=== PATIENT | male | born 1980 | race Caucasian/White ===

== ENCOUNTER 2016-10-04 16:50 | Emergency (ER) | payer MEDICARE, MEDICAID ==
[2016-10-04 17:57] VITALS: BP 156/79
--- NOTE | 2016-10-04 18:32 | UC ---
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) Initially had significant forearm pain which went away 1-2 days ago right handed - History Of Current Complaint Chief Complaint: UCGeneralIllness Stated Complaint: RIGHT HAND-FINGERS TINGLING Time Seen by Provider: 10/04/16 18:09 Hx Obtained From: Patient Onset/Duration: Gradual Onset, Lasting Days Severity Initially: Moderate Severity Currently: Mild Pain Intensity: 0 Pain Scale Used: 0-10 Numeric Character Of Pain: Aching - initially had achy right forearm pain Aggravating Factor(s): Movement - resolved Alleviating: Rest Associated Signs And Symptoms: Positive: Numbness/Tingling - tips of 3/4 fingers only Related History: Dominant Hand Right - Allergies/Home Medications Allergies/Adverse Reactions: Allergies Allergy/AdvReac Type Severity Reaction Status Date / Time Cyclobenzaprine Allergy See Comment Verified 10/04/16 17:57 [From Flexeril] Amoxicillin AdvReac Intermediate Rash Verified 10/04/16 17:57 Cefaclor [From Ceclor] AdvReac Intermediate Rash Verified 10/04/16 17:57 Erythromycin [From E-Mycin] AdvReac Intermediate Rash Verified 10/04/16 17:57 Benedryl Allergy Severe Dyskinesia Uncoded 10/04/16 17:57 neurontin at high doses Allergy Rash Uncoded 10/04/16 17:57 Home Medications: Home Medications FLUoxetine CAP* [PROzac CAP*] 10 mg PO DAILY 10/04/16 [History Confirmed ] PMH/Surg Hx/FS Hx/Imm Hx Previously Healthy: Yes - Hx IVDA Endocrine History Of: Denies: Diabetes Cardiovascular History Of: Denies: Hypertension, Pacemaker/ICD Respiratory History Of: Denies: Asthma - Surgical History Surgical History: Yes Surgery Procedure, Year, and Place: Left Hip Arthoplasty (THR) 2008' [place]. Left hip replacement 2008 - Family History Known Family History: Positive: Hypertension, Other - MS/parkinsons - Social History Alcohol Use: None Alcohol Amount: h/o abuse Substance Use Type: Marijuana Substance Use Comment - Amount & Last Used: on Vivitrol injections Smoking Status (MU): Heavy Every Day Tobacco Smoker Type: Cigarettes Amount Used/How Often: 1/2 ppd Length of Time of Smoking/Using Tobacco: 19 yrs Have You Smoked in the Last Year: Yes Review of Systems Constitutional: Negative Skin: Negative Eyes: Negative ENT: Negative Respiratory: Negative Cardiovascular: Negative Gastrointestinal: Negative Genitourinary: Negative Motor: Negative Neurovascular: Decreased Sensation - right 3/4 finger tips Musculoskeletal: Negative Neurological: Negative, Paresthesia - 3/4 finger tips Psychological: Negative All Other Systems Reviewed And Are Negative: Yes Physical Exam Triage Information Reviewed: Yes Appearance: Well-Appearing, No Pain Distress, Well-Nourished Vital Signs: Initial Vital Signs Temp 99 F 10/04/16 17:51 Pulse 59 10/04/16 17:51 Resp 16 10/04/16 17:51 BP 156/79 10/04/16 17:51 Pulse Ox 98 10/04/16 17:51 Vital Signs Reviewed: Yes Eyes: Positive: Conjunctiva Clear ENT: Positive: TMs normal. Negative: Hearing grossly normal, Pharynx normal, Pharyngeal erythema, Nasal congestion, Nasal drainage, TM bulging, TM dull, TM red, Tonsillar swelling, Tonsillar exudate, Trismus, Muffled/hoarse voice Neck: Positive: Supple, Nontender Respiratory: Positive: Lungs clear, Normal breath sounds, No respiratory distress, No accessory muscle use Cardiovascular: Positive: RRR, Pulses Normal, Brisk Capillary Refill. Negative : Tachycardia, Bradycardia, Distal Pulses Weak, Distal Pulses Absent, Delayed Capillary Refill Musculoskeletal: Positive: ROM Intact, No Edema, Other: - (+) tinels sign Neurological: Positive: Alert Psychological Exam: Normal Skin Exam: Normal Hand/Wrist Course/Dx - Differential Dx/Diagnosis Provider Diagnoses: numb finger tips (right 3/4). suspect compression neuropathy Discharge - Discharge Plan Condition: Stable Disposition: HOME Prescriptions: Meloxicam [Mobic] 15 mg PO DAILY PRN #30 tab PRN Reason: Pain Patient Education Materials: Paresthesia (ED) Referrals: Ifeanyi KEYS,Andrés Christensen [Primary Care Provider] - 1 Week Additional Instructions: I think the numbness in your fingertips is due to pressure on some nerves Wear splint at bedtime recheck next week with your provider if not better
== END 2016-10-04 19:09 | disposition home or self-care (01) ==
LOC: UCCORT 16:50
DX: R20.0 Anesthesia of skin (principal); Z88.1 Allergy status to other antibiotic agents; Z88.8 Allergy status to other drugs, medicaments and biological substances; Z96.642 Presence of left artificial hip joint; F12.90 Cannabis use, unspecified, uncomplicated; F17.210 Nicotine dependence, cigarettes, uncomplicated
CPT/HCPCS: 99213; G0463

== ENCOUNTER 2017-03-30 19:00 | Emergency (ER) | payer MEDICARE, MEDICAID | END 2017-03-30 19:42 | disposition left against medical advice (07) | LOC: UCCORT 19:00 | DX: R05 Cough (principal); R09.89 Other specified symptoms and signs involving the circulatory and respiratory systems; Z53.21 Procedure and treatment not carried out due to patient leaving prior to being seen by health care provider ==

== ENCOUNTER 2017-05-17 09:10 | Emergency (ER) | payer MEDICARE, MEDICAID ==
[2017-05-17 11:07] LABS: Hematocrit 33 % (42-52); Hemoglobin 11.2 g/dl (14.0-18.0); Mean Corpuscular HGB Conc 34 g/dl (31-36); Mean Corpuscular Hemoglobin 30 pg (27-31); Mean Corpuscular Volume 87 fL (80-94); Mean Platelet Volume 7 um3 (7.4-10.4); Red Blood Count 3.78 10^6/ul (4.0-5.4); Red Cell Distribution Width 15 % (10.5-15); White Blood Count 9.1 10^3/ul (3.5-10.8)
--- NOTE | 2017-05-17 11:14 | RAD ---
Indication: Shortness of breath. 2 views of the chest including dual energy PA views demonstrate no mediastinal shift. Heart is of normal size and configuration. Lung guzman appear clear. No prior study is available for comparison IMPRESSION: No active cardiopulmonary disease is noted.
[2017-05-17 11:29] LABS: Albumin 3.8 g/dL (3.2-5.2); BUN/Creatinine Ratio 20.4 (8-20); C Reactive Protein 2.7 mg/L (< 5.00); Calcium 8.7 mg/dL (8.6-10.3); EGFR African American 118.2 (>60); EGFR Non-African American 91.9 (>60); Globulin 2.5 g/dL (2-4); Potassium 4.3 mmol/L (3.5-5.0); Total Bilirubin 0.4 mg/dL (0.2-1.0); Total Protein 6.3 g/dL (6.4-8.9)
[2017-05-17 11:30] LABS: Troponin I 0.03 ng/mL (<0.04)
[2017-05-17 11:37] LABS: Urine Bacteria Absent (Absent); Urine Bilirubin Negative (Negative); Urine Glucose Negative (Negative); Urine Nitrite Negative (Negative)
[2017-05-17 13:44] VITALS: BP 114/60
--- NOTE | 2017-05-17 18:42 | ED ---
Maninder Moyer SooYoung, scribed for Isak Swartz MD on 05/17/17 at 1022 . Shortness of Breath - HPI Summary HPI Summary: A 36 y/o M presents to ED with c/o SOB onset two days ago. Associated sx: decreased appetite, pedal edema, bilat UE numbness. Denies nasal congestion, sore throat. He states he has chronic rhinorrhea ongoing for years. Denies PMHx of COPD, CHF, asthma. Former smoker, stopped last week. - History of Current Complaint Chief Complaint: EDShortnessOfBreath Time Seen by Provider: 05/17/17 10:03 Hx Obtained From: Patient Onset/Duration: Gradual Onset, Lasting Days - two days, Still Present Timing: Constant Current Severity: Moderate Associated Signs & Symptoms: Edema - bilat feet - Allergy/Home Medications Allergies/Adverse Reactions: Allergies Allergy/AdvReac Type Severity Reaction Status Date / Time Cyclobenzaprine Allergy See Comment Verified 10/04/16 17:57 [From Flexeril] Amoxicillin AdvReac Intermediate Rash Verified 10/04/16 17:57 Cefaclor [From Ceclor] AdvReac Intermediate Rash Verified 10/04/16 17:57 Erythromycin [From E-Mycin] AdvReac Intermediate Rash Verified 10/04/16 17:57 Benedryl Allergy Severe Dyskinesia Uncoded 10/04/16 17:57 neurontin at high doses Allergy Rash Uncoded 10/04/16 17:57 PMH/Surg Hx/FS Hx/Imm Hx Previously Healthy: No Endocrine/Hematology History: Denies: Hx Diabetes Cardiovascular History: Denies: Hx Hypertension, Hx Pacemaker/ICD Respiratory History: Denies: Hx Asthma Musculoskeletal History: Reports: Hx Back Problems, 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 Left hip replacement 2008 Infectious Disease History: Yes Infectious Disease History: Reports: Hx Hepatitis - Hep. C Denies: History Other Infectious Disease, Traveled Outside the [place] in Last 30 Days - Family History Known Family History: Positive: Hypertension, Other - MS/parkinsons - Social History Occupation: Disabled Lives: Alone Alcohol Amount: h/o abuse Hx Substance Use: Yes Substance Use Type: Reports: Marijuana Substance Use Comment - Amount & Last Used: on Vivitrol injections Hx Tobacco Use: Yes Smoking Status (MU): Former Smoker Type: Cigarettes Amount Used/How Often: 1/2 ppd Length of Time of Smoking/Using Tobacco: 19 yrs Have You Smoked in the Last Year: Yes Review of Systems Positive: Other - pos: decreased oral intake Negative: Sore Throat, Other - nasal congestion Positive: Shortness Of Breath Positive: Edema - bilat pedal Positive: Numbness - bilat All Other Systems Reviewed And Are Negative: Yes Physical Exam - Summary Physical Exam Summary: VITAL SIGNS: Reviewed. GENERAL: Patient is a well-developed and nourished MALE who is lying comfortable in the stretcher. Patient is not in any acute respiratory distress. HEAD AND FACE: No signs of trauma. No ecchymosis, hematomas or skull depressions. No sinus tenderness. EYES: PERRLA, EOMI x 2, No injected conjunctiva, no nystagmus. EARS: Hearing grossly intact. Ear canals and tympanic membranes are within normal limits. MOUTH: Oropharynx within normal limits. NECK: Supple, trachea is midline, no adenopathy, no JVD, no carotid bruit, no c- spine tenderness, neck with full ROM. CHEST: Symmetric, no tenderness at palpation LUNGS: Clear to auscultation bilaterally. No wheezing or crackles. CVS: Regular rate and rhythm, S1 and S2 present, no murmurs or gallops appreciated. ABDOMEN: Soft, non-tender. No signs of distention. No rebound, no guarding, and no masses palpated. Bowel sounds are normal. EXTREMITIES: FROM in all major joints, no edema, no cyanosis or clubbing. NEURO: Alert and oriented x 3. No acute neurological deficits. Speech is normal and follows commands. SKIN: Dry and warm Triage Information Reviewed: Yes Vital Signs On Initial Exam: Initial Vitals Temp Pulse Resp BP Pulse Ox 99.3 F 68 22 104/62 99 05/17/17 09:35 05/17/17 09:35 05/17/17 09:35 05/17/17 09:35 05/17/17 09:35 Vital Signs Reviewed: Yes - Abel Coma Scale Coma Scale Total: 15 Diagnostics - Vital Signs Vital Signs Temp Pulse Resp BP Pulse Ox 05/17/17 10:18 20 05/17/17 10:00 66 97 05/17/17 09:39 65 10 107/60 99 05/17/17 09:35 99.3 F 68 22 104/62 99 - Laboratory Lab Results: Lab Results 05/17/17 05/17/17 05/17/17 Range/Units 09:52 10:50 10:50 WBC (3.5-10.8) 10^3/ul RBC (4.0-5.4) 10^6/ul Hgb (14.0-18.0) g/dl Hct (42-52) % MCV (80-94) fL MCH (27-31) pg MCHC (31-36) g/dl RDW (10.5-15) % Plt Count (150-450) 10^3/ul MPV (7.4-10.4) um3 Neut % (Auto) (38-83) % Lymph % (Auto) (25-47) % [place] % (Auto) (1-9) % Eos % (Auto) (0-6) % Baso % (Auto) (0-2) % Absolute Neuts (auto) (1.5-7.7) 10^3/ul Absolute Lymphs (auto) (1.0-4.8) 10^3/ul Absolute Monos (auto) (0-0.8) 10^3/ul Absolute Eos (auto) (0-0.6) 10^3/ul Absolute Basos (auto) (0-0.2) 10^3/ul Absolute Nucleated RBC 10^3/ul Nucleated RBC % Sodium 137 (133-145) mmol/L Potassium 4.3 (3.5-5.0) mmol/L Chloride 107 (101-111) mmol/L Carbon Dioxide 26 (22-32) mmol/L Anion Gap 4 (2-11) mmol/L BUN 19 (6-24) mg/dL Creatinine 0.93 (0.67-1.17) mg/dL Est GFR ( Amer) 118.2 (>60) Est GFR (Non-Af Amer) 91.9 (>60) BUN/Creatinine Ratio 20.4 H (8-20) Glucose 102 H (70-100) mg/dL Calcium 8.7 (8.6-10.3) mg/dL Total Bilirubin 0.40 (0.2-1.0) mg/dL AST 20 (13-39) U/L ALT 20 (7-52) U/L Alkaline Phosphatase 53 (34-104) U/L CK-MB (CK-2) 1.7 (0.6-6.3) ng/mL Troponin I 0.03 (<0.04) ng/mL C-Reactive Protein 2.70 (< 5.00) mg/L B-Natriuretic Peptide 167 H ( - 100) pg/mL Total Protein 6.3 L (6.4-8.9) g/dL Albumin 3.8 (3.2-5.2) g/dL Globulin 2.5 (2-4) g/dL Albumin/Globulin Ratio 1.5 (1-3) Urine Color Yellow Urine Appearance Clear Urine pH 6.0 (5-9) Ur Specific [place] 1.014 (1.010-1.030) Urine Protein Negative (Negative) Urine Ketones Negative (Negative) Urine Blood Negative (Negative) Urine Nitrate Negative (Negative) Urine Bilirubin Negative (Negative) Urine Urobilinogen Negative (Negative) Ur Leukocyte Esterase Trace H (Negative) Urine WBC (Auto) Trace(0-5/hpf) (Absent) Urine RBC (Auto) Trace(0-2/hpf) (Absent) Ur Squamous Epith Cells Present H (Absent) Urine Bacteria Absent (Absent) Hyaline Casts Present H (Absent) Urine Glucose Negative (Negative) 05/17/17 Range/Units 10:50 WBC 9.1 (3.5-10.8) 10^3/ul RBC 3.78 L (4.0-5.4) 10^6/ul Hgb 11.2 L (14.0-18.0) g/dl Hct 33 L (42-52) % MCV 87 (80-94) fL MCH 30 (27-31) pg MCHC 34 (31-36) g/dl RDW 15 (10.5-15) % Plt Count 201 (150-450) 10^3/ul MPV 7 L (7.4-10.4) um3 Neut % (Auto) 63.3 (38-83) % Lymph % (Auto) 26.0 (25-47) % [place] % (Auto) 8.5 (1-9) % Eos % (Auto) 1.6 (0-6) % Baso % (Auto) 0.6 (0-2) % Absolute Neuts (auto) 5.7 (1.5-7.7) 10^3/ul Absolute Lymphs (auto) 2.4 (1.0-4.8) 10^3/ul Absolute Monos (auto) 0.8 (0-0.8) 10^3/ul Absolute Eos (auto) 0.1 (0-0.6) 10^3/ul Absolute Basos (auto) 0.1 (0-0.2) 10^3/ul Absolute Nucleated RBC 0 10^3/ul Nucleated RBC % 0 Sodium (133-145) mmol/L Potassium (3.5-5.0) mmol/L Chloride (101-111) mmol/L Carbon Dioxide (22-32) mmol/L Anion Gap (2-11) mmol/L BUN (6-24) mg/dL Creatinine (0.67-1.17) mg/dL Est GFR ( Amer) (>60) Est GFR (Non-Af Amer) (>60) BUN/Creatinine Ratio (8-20) Glucose (70-100) mg/dL Calcium (8.6-10.3) mg/dL Total Bilirubin (0.2-1.0) mg/dL AST (13-39) U/L ALT (7-52) U/L Alkaline Phosphatase (34-104) U/L CK-MB (CK-2) (0.6-6.3) ng/mL Troponin I (<0.04) ng/mL C-Reactive Protein (< 5.00) mg/L B-Natriuretic Peptide ( - 100) pg/mL Total Protein (6.4-8.9) g/dL Albumin (3.2-5.2) g/dL Globulin (2-4) g/dL Albumin/Globulin Ratio (1-3) Urine Color Urine Appearance Urine pH (5-9) Ur Specific [place] (1.010-1.030) Urine Protein (Negative) Urine Ketones (Negative) Urine Blood (Negative) Urine Nitrate (Negative) Urine Bilirubin (Negative) Urine Urobilinogen (Negative) Ur Leukocyte Esterase (Negative) Urine WBC (Auto) (Absent) Urine RBC (Auto) (Absent) Ur Squamous Epith Cells (Absent) Urine Bacteria (Absent) Hyaline Casts (Absent) Urine Glucose (Negative) Result Diagrams: 05/17/17 10:50 05/17/17 10:50 Lab Statement: Any lab studies that have been ordered have been reviewed, and results considered in the medical decision making process. - Radiology CXR Xray Interpretation: No Acute Changes - IMPRESSION: No active cardiopulmonary dz. ED physician has reviewed this radiology report and agrees Radiology Interpretation Completed By: Radiologist - EKG 1037 Cardiac Rate: NL - 72bpm EKG Rhythm: Sinus Rhythm ST Segment: Normal Ectopy: None Re-Evaluation - Re-Evaluation 1 Re-Evaluation Time: 12:54 Change: Unchanged Comment: Discussing results with pt and plan to dispo. Pt voiced understanding. Course/Dx - Course Course Of Treatment: A 36 y/o M presents to ED with c/o SOB onset two days ago. Associated sx: decreased appetite, pedal edema, bilat UE numbness. Denies nasal congestion, sore throat. He states he has chronic rhinorrhea ongoing for years. Denies PMHx of COPD, CHF, asthma. Former smoker, stopped last week. Bloodwork and labs are without significant abnormality. CXR is neg for PNA. It seems that pt has an URI with viral etiology. Therefore, will D/C home to f/u PCP, no need for ABX at this time. Recommended to return to ED if he develops fever, n/v, and productive cough. Pt voiced understanding. - Diagnoses Differential Diagnosis/HQI/PQRI: Positive: Asthma, Bronchitis, Chest Wall Pain, COPD Exacerbation Provider Diagnoses: URI (upper respiratory infection) Discharge - Discharge Plan Condition: Stable Disposition: HOME Patient Education Materials: Upper Respiratory Infection (ED) Referrals: Ifeanyi KEYS,Andrés Christensen [Primary Care Provider] - Additional Instructions: Follow up with your primary care provider in 3 days. Please return to the ED if you experience new or worsening symptoms. The documentation as recorded by the Maninder cao SooYoung accurately reflects the service I personally performed and the decisions made by me, Isak Swartz MD.
== END 2017-05-17 13:43 | disposition home or self-care (01) ==
LOC: ED 09:10
DX: J06.9 Acute upper respiratory infection, unspecified (principal); R06.02 Shortness of breath; Z87.891 Personal history of nicotine dependence
CPT/HCPCS: 36415; 71020; 80053; 81003; 81015; 82553; 83880; 84484; 85025; 86140; 87086; 93005; 99283

== ENCOUNTER 2017-07-24 14:35 | Emergency (ER) | payer MEDICARE, MEDICAID ==
[2017-07-24 15:06] VITALS: BP 143/80
--- NOTE | 2017-07-24 15:46 | UC ---
General HPI - HPI Summary HPI Summary: [facility] last week,,did not get his welbutrin did get all other meds---called pharmacy and confirmed dose - History of Current Complaint Chief Complaint: UCMedRefill Stated Complaint: MEDICATION REFILL Time Seen by Provider: 07/24/17 15:20 Hx Obtained From: Patient Timing: Constant Onset Severity: Mild Current Severity: Mild - Allergy/Home Medications Allergies/Adverse Reactions: Allergies Allergy/AdvReac Type Severity Reaction Status Date / Time Cyclobenzaprine Allergy See Comment Verified 07/24/17 14:58 [From Flexeril] Amoxicillin AdvReac Intermediate Rash Verified 07/24/17 14:58 Cefaclor [From Ceclor] AdvReac Intermediate Rash Verified 07/24/17 14:58 Erythromycin [From E-Mycin] AdvReac Intermediate Rash Verified 07/24/17 14:58 Benedryl Allergy Severe Dyskinesia Uncoded 07/24/17 14:58 neurontin at high doses Allergy Rash Uncoded 07/24/17 14:58 Home Medications: Home Medications Bupropion XL* [Wellbutrin XL *] 300 mg DAILY 07/24/17 [History Confirmed ] PMH/Surg Hx/FS Hx/Imm Hx Previously Healthy: No Psychological History: Anxiety, Depression, Other 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 Left hip replacement 2008 - Family History Known Family History: Positive: Hypertension, Other - MS/parkinsons - Social History Occupation: Unemployed Lives: With Family Alcohol Use: None Alcohol Amount: h/o abuse Substance Use Type: None Substance Use Comment - Amount & Last Used: 07/24/17- clean since 06/11/17 Smoking Status (MU): Light Every Day Tobacco Smoker Type: Cigarettes Amount Used/How Often: <1/2 ppd Length of Time of Smoking/Using Tobacco: 19 yrs Have You Smoked in the Last Year: Yes - Immunization History Most Recent Influenza Vaccination: no Review of Systems Constitutional: Negative Skin: Negative Eyes: Negative ENT: Negative Respiratory: Negative Cardiovascular: Negative Gastrointestinal: Negative Genitourinary: Negative Motor: Negative Neurovascular: Negative Musculoskeletal: Negative Neurological: Negative Psychological: Negative Is Patient Immunocompromised?: No All Other Systems Reviewed And Are Negative: Yes Physical Exam Triage Information Reviewed: Yes Appearance: Well-Appearing, No Pain Distress, Well-Nourished Vital Signs: Initial Vital Signs Temp 99.1 F 07/24/17 15:00 Pulse 90 07/24/17 15:00 Resp 18 07/24/17 15:00 BP 143/80 07/24/17 15:00 Pulse Ox 98 07/24/17 15:00 Vital Signs Reviewed: Yes Eye Exam: Normal Eyes: Positive: Conjunctiva Clear ENT Exam: Normal ENT: Positive: Normal ENT inspection, Hearing grossly normal. Negative: Nasal congestion, Trismus, Muffled voice, Hoarse voice, Sinus tenderness Dental Exam: Normal Neck exam: Normal Neck: Positive: Supple, Nontender Respiratory Exam: Normal Respiratory: Positive: Chest non-tender, No respiratory distress, No accessory muscle use Cardiovascular Exam: Normal Cardiovascular: Positive: Pulses Normal, Brisk Capillary Refill Musculoskeletal Exam: Normal Musculoskeletal: Positive: Strength Intact, ROM Intact, No Edema Neurological Exam: Normal Neurological: Positive: Alert, Muscle Tone Normal Psychological Exam: Normal Skin Exam: Normal Course/Dx - Course Course Of Treatment: refill wellbutrin has follow up with [facility] - Differential Dx - Multi-Symptom Provider Diagnoses: polysubstance abuse in early recovery Discharge - Discharge Plan Condition: Stable Disposition: HOME Prescriptions: Bupropion XL* [Wellbutrin XL *] 300 mg PO DAILY #30 tab Patient Education Materials: Polysubstance Abuse (ED) Referrals: [facility] [place] [facility]FERR[facility] [Outside] - 1 Week Additional Instructions: Best of wellness in your continuing sobriety----
== END 2017-07-24 15:54 | disposition home or self-care (01) ==
LOC: UCCORT 14:35
DX: F19.11 Other psychoactive substance abuse, in remission (principal); Z76.0 Encounter for issue of repeat prescription; F41.9 Anxiety disorder, unspecified; F32.9 Major depressive disorder, single episode, unspecified; Z88.1 Allergy status to other antibiotic agents; Z88.8 Allergy status to other drugs, medicaments and biological substances; F17.210 Nicotine dependence, cigarettes, uncomplicated
CPT/HCPCS: 99212; G0463

== ENCOUNTER 2018-10-13 12:46 | Emergency (ER) | payer MEDICARE, MEDICAID ==
--- NOTE | 2018-10-13 13:18 | ED ---
Psychiatric Complaint - HPI Summary HPI Summary: Pt is a 38 y/o male brought in by police on a 945 who presents to the ED c/o anger. He recently found out his mother has brain CA and is living in a home with smoke exposure. Pt is very upset about this news and feels angry. He denies any SI or HI. He has a hx of opioid and amphetamine abuse, and somebody called the police because they are concerned he may relapse due to this recent stress. However, pt states that he does not want to use drugs. PMHx bipolar disorder and is on Prozac, Depakote, and Naltrexone. Pt states he thinks his medications are no longer working. He is a former smoker. - History Of Current Complaint Chief Complaint: EDMentalHealth Time Seen by Provider: 10/13/18 13:14 Hx Obtained From: Patient Onset/Duration: Gradual Onset, Lasting Weeks - 2, Still Present Timing: Constant Character: Angry Aggravating Factor(s): Recent Stress Alleviating Factor(s): Nothing Related History: Positive For: Prior Psychiatric Issues Has Suicidal: Denies: Thoughts Has Homicidal: Denies: Thoughts - Allergies/Home Medications Allergies/Adverse Reactions: Allergies Allergy/AdvReac Type Severity Reaction Status Date / Time amoxicillin Allergy Rash Verified 10/13/18 13:25 cefaclor Allergy Rash Verified 10/13/18 13:25 cyclobenzaprine Allergy See Comment Verified 10/13/18 13:26 [From Flexeril] erythromycin base Allergy Rash Verified 10/13/18 13:25 Benedryl Allergy Severe Dyskinesia Uncoded 07/24/17 14:58 neurontin at high doses Allergy Rash Uncoded 07/24/17 14:58 Home Medications: Home Medications Divalproex DR TAB(*) [Depakote DR(*)] 500 mg PO BID 10/13/18 [History Confirmed 10/13/18] FLUoxetine CAP* [PROzac CAP*] 20 mg PO DAILY 10/13/18 [History Confirmed ] Naltrexone TAB* 50 mg PO BID 10/13/18 [History Confirmed 10/13/18] PMH/Surg Hx/FS Hx/Imm Hx Endocrine/Hematology History: Denies: Hx Diabetes Cardiovascular History: Denies: Hx Hypertension, Hx Pacemaker/ICD Respiratory History: Denies: Hx Asthma Musculoskeletal History: Reports: Hx Back Problems, 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 Left hip replacement 2008 Infectious Disease History: No Infectious Disease History: Reports: Hx Hepatitis - Hep. C Denies: History Other Infectious Disease, Traveled Outside the [place] in Last 30 Days - Family History Known Family History: Positive: Hypertension, Other - MS/parkinsons - Social History Alcohol Use: None Alcohol Amount: h/o abuse Hx Substance Use: Yes Substance Use Type: Reports: None Substance Use Comment - Amount & Last Used: amphetamines, opiods 07/24/17- clean since 06/11/17 Hx Tobacco Use: Yes Smoking Status (MU): Former Smoker Type: Cigarettes Amount Used/How Often: <1/2 ppd Length of Time of Smoking/Using Tobacco: 19 yrs Have You Smoked in the Last Year: Yes Review of Systems Negative: Fever Positive: Other - Angry, NEGATIVE: SI, HI All Other Systems Reviewed And Are Negative: Yes Physical Exam - Summary Physical Exam Summary: Appearance: The patient is well-nourished in no acute distress and in no acute pain. Skin: The skin is warm and dry and skin color reflects adequate perfusion. HEENT: The head is normocephalic and atraumatic. The pupils are equal and reactive. The conjunctivae are clear and without drainage. Nares are patent and without drainage. Mouth reveals moist mucous membranes and the throat is without erythema and exudate. The external ears are intact. The ear canals are patent and without drainage. The tympanic membranes are intact. Neck: The neck is supple with full range of motion and non-tender. There are no carotid bruits. There is no neck vein distension. Respiratory: Chest is non-tender. Lungs are clear to auscultation and breath sounds are symmetrical and equal. Cardiovascular: Heart is regular rate and rhythm. There is no murmur or rub auscultated. There is no peripheral edema and pulses are symmetrical and equal. Abdomen: The abdomen is soft and non-tender. There are normal bowel sounds heard in all four quadrants and there is no organomegaly palpated. Musculoskeletal: There is no back tenderness noted. Extremities are non-tender with full range of motion. There is good capillary refill. There is no peripheral edema or calf tenderness elicited. Neurological: Patient is alert and oriented to person, place and time. The patient has symmetrical motor strength in all four extremities. Cranial nerves are grossly intact. Deep tendon reflexes are symmetrical and equal in all four extremities. Psychiatric: The patient has an appropriate affect and does not exhibit any anxiety or depression. Triage Information Reviewed: Yes Vital Signs On Initial Exam: Initial Vitals Temp Pulse Resp BP Pulse Ox 99.1 F 91 16 153/100 97 10/13/18 12:54 10/13/18 12:54 10/13/18 12:54 10/13/18 12:54 10/13/18 12:54 Vital Signs Reviewed: Yes Diagnostics - Vital Signs Vital Signs Temp Pulse Resp BP Pulse Ox 10/13/18 12:54 99.1 F 91 16 153/100 97 - Laboratory Result Diagrams: 10/13/18 13:39 10/13/18 13:39 Lab Statement: Any lab studies that have been ordered have been reviewed, and results considered in the medical decision making process. Re-Evaluation - Re-Evaluation First Eval Re-Evaluation Time: 14:45 Change: Unchanged Comment: Pt is medically cleared for a MHE. Second Eval Re-Evaluation Time: 15:28 Change: Worse Comment: Pt now has a ULRICH and is requesting Tylenol. Course/Dx - Course Course Of Treatment: Mr. Bustillo was apparently sent into the emergency department in voluntarily with a concern for his safety. He has had recent stressors of his mother's diagnosis of lung cancer with brain metastases and the fact that she is still living and environment follow-up secondhand smoke. He has a history of IV drug use and there is a concern that he will revert or that he will hurt himself another way. He has been medically cleared at this point and is awaiting mental health eval. - Differential Dx/Clinical Impression Provider Diagnosis: Situational depression Discharge - Sign-Out/Discharge Documenting (check all that apply): Sign-Out Patient Signing out patient TO: Maddie Gupta Patient Received Moderate/Deep Sedation with Procedure: No - Discharge Plan Referrals: No Primary Care Phys,NOPCP [Primary Care Provider] - - Attestation Statements Document Initiated by Scribe: Yes Documenting Scribe: Prema Ayala Provider For Whom Scribe is Documenting (Include Credential): Pool Swain MD Scribe Attestation: I, Prema Ayala, scribed for Pool Swain MD on 10/13/18 at 1749. Scribe Documentation Reviewed: Yes Provider Attestation: The documentation as recorded by the kimmyibePrema accurately reflects the service I personally performed and the decisions made by me, Pool Swain MD Status of Scribe Document: Viewed
[2018-10-13] MEDS ORDERED: Nicotine Inhaler* 10 MG AMP INH PRN (13:24)
--- OUTSIDE RECORDS SUMMARY | 2018-10-13 13:43 | XMS REPORT | Continuity of Care Document ---
:1980 External Reference #:[id number] Demographics Address [address] [place] [address] Home Phone [phone] Mobile Phone [phone] Preferred Language en Marital Status Not or Scientologist Affiliation Unknown Race White Ethnic Group Not or Author Name Monty Erazo N.P. Address [address] [facility] [address] [place] [address] Care Team Providers Name Role Phone Scott Miner M.D. Care Team Information Computer Applications Developer Unavailable Payers Date Identification Numbers Payment Provider Subscriber Policy Number: [id number] Medicare Fly Bustillo PayID: [id number] [address] [place] [address] Policy Number: [id number] [facility] Fly Bustillo PayID: [id number] [address] [place] [address] Effective: 2009 Policy Number: [id number] [facility] Fly Bustillo Expires: 2011 PayID: [id number] [address] [place] [address] Advance Directives Description No Information Available Problems Description No Information Family History Date Family Member(s) Observation Comments General Depression General Hypertension General Heart Disease Father due to Pulmonary Embolus () Mother 67 Mother Lung Cancer Mother Brain cancer Children 4 Siblings 6 Social History Type Date Description Comments Sex Unknown Work Status Disabled ETOH Use Denies alcohol use Tobacco Use Start: Unknown End: Unknown Patient is a former smoker Recreational Drug Use Former Drug User Smoking Status Reviewed: 05/08/18 Patient is a former smoker Allergies, Adverse Reactions, Alerts Date Description Reaction Status Severity Comments 10/05/2018 Wellbutrin Active 10/05/2018 Gabapentin Active 10/05/2018 Cefaclor Active 10/05/2018 Benadryl Active 10/05/2018 Azithromycin Active Medications Medication Date Status Form Strength Qnty SIG Indications Ordering Provider Naltrexone Active Tablets 50mg 60tabs tab by F11.21 Kristofer, HCL 019 mouth Ahmad MStew, twice a M.D. day as needed Divalproex /[address] 500mg 1 by F31.81 Unknown Sodium 000 mouth twice a day F14.21 F11.21 Fluoxetine HCL Active Capsules 20mg 30caps 1 by mouth every F31.81 Unknown day F11.21 F14.21 Immunizations Description No Information Available Vital Signs Date Vital Result Comment 10/09/2018 10:27am BP Systolic 110 mmHg BP Diastolic 68 mmHg Height 64 inches 5'4" Weight 160.00 lb BMI (Body Mass Index) 27.5 kg/m2 Heart Rate 89 /min Respiratory Rate 16 /min 10/05/2018 1:30pm BP Systolic 122 mmHg BP Diastolic 64 mmHg Height 64 inches 5'4" Weight 160.00 lb BMI (Body Mass Index) 27.5 kg/m2 Heart Rate 79 /min Respiratory Rate 18 /min Results Test Date Facility Test Result H/L Range Note Laboratory test 10/09/2018 [facility] Valproic Acid <pending> finding [address] [facility] (607)- - TSH, Ultrasenstive <pending> Procedures Date Code Description Status 10/05/2018 24750 Visual Screening Test Completed 10/05/2018 36051 Audiometry, Bekesy, Screening Completed Encounters Type Date Location Provider Dx Diagnosis Office Visit 10/09/2018 [facility] Monty Erazo, I10 Essential ( primary) 10:15a N.P. hypertension E78.2 Mixed hyperlipidemia L20.9 Atopic dermatitis, unspecified J30.9 Allergic rhinitis, unspecified F14.21 Cocaine dependence, in remission F11.21 Opioid dependence, in remission F31.81 Bipolar II disorder M25.552 Pain in left hip M25.521 Pain in right elbow M54.5 Low back pain H52.13 Myopia, bilateral K21.9 Gastro-esophageal reflux disease without esophagitis J44.9 Chronic obstructive pulmonary disease, unspecified F17.211 Nicotine dependence, cigarettes, in remission Office Visit 10/05/2018 1:45p [facility] Scott Miner Z00.01 Encounter for Eric Arthur general adult medical exam w abnormal findings I10 Essential (primary) hypertension E78.2 Mixed hyperlipidemia L20.9 Atopic dermatitis, unspecified J30.9 Allergic rhinitis, unspecified F14.21 Cocaine dependence, in remission F11.21 Opioid dependence, in remission F31.81 Bipolar II disorder M25.552 Pain in left hip M25.521 Pain in right elbow M54.5 Low back pain H52.13 Myopia, bilateral K21.9 Gastro-esophageal reflux disease without esophagitis J44.9 Chronic obstructive pulmonary disease, unspecified F17.211 Nicotine dependence, cigarettes, in remission Office Visit 04/21/2010 2:30p [facility] Scott Miner, 719.45 Pain Joint MHolger Pelvic Region & Thigh 724.2 Lumbago 300.00 Anxiety State Unspec V70.0 Examination General Medical Routine AT Health Care Facility Plan of Treatment Future Appointment(s):11/02/2018 3:00 pm - Scott Miner M.D. at [facility]
--- OUTSIDE RECORDS SUMMARY | 2018-10-13 13:43 | XMS REPORT | Continuity of Care Document ---
:1980 External Reference #:[id number] Demographics Address [address] [place] [address] Home Phone [phone] Mobile Phone [phone] Preferred Language en Marital Status Not or Episcopal Affiliation Unknown Race White Ethnic Group Not or Author Name Scott Miner M.D. Address [address] [facility] [address] [place] [address] Care Team Providers Name Role Phone Scott Miner M.D. Care Team Information Sleep Manager Unavailable Payers Date Identification Numbers Payment Provider Subscriber Policy Number: [id number] Medicare Fly Bustillo PayID: [id number] [address] [place] [address] Policy Number: [id number] Medicaid/[facility] Fly Bustillo PayID: [id number] [address] [place] [address] Effective: 2009 Policy Number: [id number] [facility] Fly Bustillo Expires: 2011 PayID: [id number] [address] [place] [address] Advance Directives Description No Information Available Problems [...] Strength Qnty SIG Indications Ordering Provider Naltrexone 02/28/2 Active Tablets 50mg 60tabs tab by F11.21 Kristofer, HCL 019 mouth Scott Arthur, twice a M.D. day as needed Divalproex 00/[address] 500mg 1 by F31.81 Unknown Sodium 000 mouth twice a day F14.21 F11.21 Fluoxetine HCL Active Capsules 20mg 30caps 1 by mouth every F31.81 Unknown day F11.21 F14.21 Immunizations Description No Information Available Vital Signs Date Vital Result Comment 10/05/2018 1:30pm BP Systolic 122 mmHg BP Diastolic 64 mmHg Height 64 inches 5'4" Weight 160.00 lb BMI (Body Mass Index) 27.5 kg/m2 Heart Rate 79 /min Respiratory Rate 18 /min Results Description No Information Available Procedures Date Code Description Status 10/05/2018 67927 Visual Screening Test Completed 10/05/2018 37740 Audiometry, Bekesy, Screening Completed Encounters Type Date Location Provider Dx Diagnosis Office Visit 10/05/2018 [facility] Scott Miner, Z00.01 Encounter for 1:45p M.DStew general adult medical exam w abnormal findings [...] cigarettes, in remission Office Visit 04/21/2010 2:30p [facility] Scott Miner, 719.45 Pain Joint M.D. Pelvic Region & Thigh 724.2 Lumbago 300.00 Anxiety State Unspec V70.0 Examination General Medical Routine AT Health Care Facility Plan of Treatment Future Appointment(s):11/02/2018 3:00 pm - Scott Miner [facility]D. at [facility]10/05/2018 - Scott Miner M.D.Z00.01 Encounter for general adult medical examination with abnormal findingsComments:GOOD NUTRITION / EXERCISEDENTAL/ FLOSSING/ SELF CAREDROWNING/ SUN SAFETYSEAT BELT/ DRIVING SAFETYSPORT BIKE/ HELMET USESPORTS/ INJURY PREVENTIONVIOLENCE PREVENTION/ GUN SAFETYPARENTING ADVICE"SAFE AT HOME"SEX EDUCATION/ COUNSELINGBREAST/ TESTICULAR SELF EXAMEDUCATION GOALS/ ACTIVITIESLIMIT TV/ INTERNETUSETOBACCO/ ALCOHOL/ DRUGS / INHALANTSPEER REFUSAL SKILLSSOCIAL INTERACTIONFAMILY FUNCTIONINGSELF CONTROLDEPRESSION/ ANXIETYNEXT APPOINTMENTYEARLY PHYSICAL WELLNESS [id number] Essential (primary) hypertensionComments:CHECK BP TIW ( PRN)DIET AND FLUID COUNSELING LOW SODIUM DIETWT LOSSF/U LAB SMOKING RDBXLSLBAM70.2 Mixed hyperlipidemiaComments:DIET REVIEWED CONTINUE DIETWT LOSSF/U LAB FBWL20.9 Atopic dermatitis, unspecifiedComments:SKIN CARE INSTRUCTIONS EUCERIN CREAM OR BABY OIL 2-3 APPLICATION PER DAYUSE MOISTURIZING SOAPAVOID PROLONGED WATER EXPOSUREAVOID USING HOT WATER IN GEVDWMX09.9 Allergic rhinitis, unspecifiedComments:INCREASE PO FLUID USE ANTIHISTAMINE PRN SECOND HAND SMOKING AVOIDANCE SMOKING BILARDKAHM31.21 Cocaine dependence, in remissionComments: OBSERVE COUNCELLING AND REASSURANCEF/U WITH [facility] PRNF11.21 Opioid dependence, in remissionNew Medication:Naltrexone HCL 50 mg - tab by mouth twice a day as neededComments:F/U WITH REHAB NIFNBLNL50.81 Bipolar II disorderComments: COUNCELLING AND REASSURANCE RELAXATION TECHNIQUES DISCUSSED COUNSELED RE: STRESSORS IN LIFEFollow up:1 csfeeN47.552 Pain in left hipComments:EXERCISE/HEAT /MESSAGETYLENOL OR MOTRIN PRNAVOID HEAVY LIFTINGWT LOSSM25.521 Pain in right elbowComments:EXERCISE/HEAT/MESSAGE TYLENOL OR MOTRIN PRNAVOID HEAVY LIFTING ROSALIA WRAP PRNELEVATE PRNM54.5 Low back painComments:EXERCISE/HEAT /MESSAGEAVOID HEAVY LIFTING WT LOSSTYLENOL OR MOTRIN PRNH52.13 Myopia, bilateralComments:USE GLASSES/ CONTACTSF/U WITH DJHDCISCQDOAJX77.9 Gastro-esophageal reflux disease without esophagitisComments:AVOID CAFFEINE, ETOH AND SPICY FOODSTUMS OR MYLANTA PRN CALL WITH PROBLEMS OR CONCERNSSMOKING NAAFGPONYU78.9 Chronic obstructive pulmonary disease, unspecifiedComments:INCREASE PO FLUIDRESTSMOKING GPOWBVVRCF22.211 Nicotine dependence, cigarettes, in remissionComments:SMOKING CESSATION COUNCELLING DISCUSSION RE: CESSATION OPTIONSPT INFORMED RE: NICOTINE PATCHES, CHANTIX, AND JUDI
[2018-10-13 13:46] LABS: ABS Basophils 0.1 10^3/ul (0-0.2); ABS Eosinophils 0.1 10^3/ul (0-0.6); ABS Lymphocytes 1.6 10^3/ul (1.0-4.8); ABS Monocytes 0.6 10^3/ul (0-0.8); ABS Neutrophils 4.7 10^3/ul (1.5-7.7); ABS Nucleated RBC 0 10^3/ul; Eosinophil % 0.9 %; Hematocrit 41 % (42-52); Hemoglobin 13.8 g/dl (14.0-18.0); Lymphocyte % 22.6 %; Mean Corpuscular HGB Conc 34 g/dl (31-36); Mean Corpuscular Hemoglobin 30 pg (27-31); Mean Corpuscular Volume 89 fL (80-94); Mean Platelet Volume 7.3 fL (7.4-10.4); Nucleated Red Blood Cells % 0; Platelet Count 241 10^3/ul (150-450); Red Blood Count 4.58 10^6/ul (4.00-5.40); Red Cell Distribution Width 13 % (10.5-15); White Blood Count 6.9 10^3/ul (3.5-10.8)
[2018-10-13 13:58] LABS: Urine Appearance Cloudy; Urine Bacteria Absent (Absent); Urine Bilirubin Negative (Negative); Urine Blood 1+ (Negative); Urine Color Yellow; Urine Glucose Negative (Negative); Urine Ketones Trace (Negative); Urine Nitrite Negative (Negative); Urine Protein Negative (Negative); Urine Red Blood Cell 3+(>10/hpf) (Absent); Urine Specific Gravity 1.026 (1.010-1.030); Urine Urobilinogen Negative (Negative); Urine White Blood Cell Trace(0-5/hpf) (Absent)
[2018-10-13 14:12] LABS: ALT 11 U/L (7-52); AST 15 U/L (13-39); Albumin 4.7 g/dL (3.2-5.2); Albumin/Globulin Ratio 1.9 (1-3); Alkaline Phosphatase 49 U/L (34-104); Anion Gap 8 mmol/L (2-11); BUN/Creatinine Ratio 27.7 (8-20); Blood Urea Nitrogen 23 mg/dL (6-24); CO2 Carbon Dioxide 25 mmol/L (22-32); Calcium 9.4 mg/dL (8.6-10.3); Chloride 105 mmol/L (101-111); EGFR African American 125.5 (>60); EGFR Non-African American 103.7 (>60); Globulin 2.5 g/dL (2-4); Glucose 98 mg/dL (70-100); Potassium 4.2 mmol/L (3.5-5.0); Sodium 138 mmol/L (135-145); Total Protein 7.2 g/dL (6.4-8.9)
[2018-10-13 14:18] LABS: Barbiturates Urine Screen None Detected (None Detect); Benzodiazepine Urine Screen None Detected (None Detect); Urine Cannabinoids Screen None Detected (None Detect)
[2018-10-13 14:34] LABS: Acetaminophen < 15 mcg/mL; Alcohol < 10 mg/dL (<10); Salicylate < 2.50 mg/dL (<30)
[2018-10-13 14:49] LABS: TSH (Thyroid Stimulating Horm) 1.11 mcIU/mL (0.34-5.60)
[2018-10-13] MEDS ORDERED: Acetaminophen TAB* 325 MG PO ONE (15:28)
--- NOTE | 2018-10-13 18:08 | ED ---
Progress - Progress Note Progress Note: Receiving sign out from Dr. Swain, pending disposition following MHE. Re-Evaluation - Re-Evaluation First Eval Re-Evaluation Time: 14:45 Change: Unchanged Comment: Pt is medically cleared for a MHE. Second Eval Re-Evaluation Time: 15:28 Change: Worse Comment: Pt now has a ULRICH and is requesting Tylenol. Course/Dx - Course Course Of Treatment: Patient was signed out from Dr. Swain upon shift change pending MHE and disposition. Per MHE, the patient will be held to the morning pending evaluation by Dr. Healy. Patient will be signed out to Dr. Swartz upon shift change pending evaluation by Dr. Healy. Patient is agreeable with this plan. - Diagnoses Provider Diagnoses: Bipolar 2 disorder Discharge - Sign-Out/Discharge Documenting (check all that apply): Sign-Out Patient, Receiving Sign-Out Signing out patient TO: Isak Swartz - Upon shift change pending evaluation by Dr. Healy. Receiving patient FROM: Pool Swain Patient Received Moderate/Deep Sedation with Procedure: No - Discharge Plan Condition: Stable Referrals: No Primary Care Phys,NOPCP [Primary Care Provider] - - Attestation Statements Document Initiated by Scribe: Yes Documenting Scribe: Prema Ayala Provider For Whom Scribe is Documenting (Include Credential): Maddie Gupta MD Scribe Attestation: Prema Moyer, scribed for Maddie Gupta MD on 10/14/18 at 0634. Status of Scribe Document: Ready
[2018-10-13 18:44] VITALS: BP 135/81
[2018-10-13] MEDS ORDERED: ALPRAZolam TAB* 0.5 MG PO ONE (21:03)
--- NOTE | 2018-10-14 07:19 | ED ---
Progress - Progress Note Progress Note: This patient was signed out from Dr. Gupta to Dr. Swartz, pending dispo after MHE. MHE was done at [address]. Healy doesn't want to admit the patient and [facility] won't take the patient either. His girlfriend does not want the patient to return home. Therefore, the patient will [facility]C to the prison with dx of mood disorder. Patient understands and agrees with this plan. - Consult/PCP Time Called: 17:00 Re-Evaluation - Re-Evaluation First Eval Re-Evaluation Time: 14:45 Change: Unchanged Comment: Pt is medically cleared for a MHE. Second Eval Re-Evaluation Time: 15:28 Change: Worse Comment: Pt now has a ULRICH and is requesting Tylenol. Course/Dx - Course Course Of Treatment: Patient was assessed by Dr. Healy and he requests for the patient to be discharged to a prison and follow up as an outpatient. - Diagnoses Provider Diagnoses: Mood disorder Discharge - Sign-Out/Discharge Documenting (check all that apply): Patient Departure - discharge Patient Received Moderate/Deep Sedation with Procedure: No - Discharge Plan Condition: Stable Disposition: HOME Patient Education Materials: Mood Disorders (ED) Referrals: [facility] [Outside] - 3 Days Additional Instructions: RETURN TO THE ED FOR ANY WORSENING OR NEW SYMPTOMS. - Billing Disposition and Condition Condition: STABLE Disposition: Home - Attestation Statements Document Initiated by Torri: Yes Documenting Scribe: Rian Israel Provider For Whom Torri is Documenting (Include Credential): Isak Swartz MD Scribe Attestation: IRian, scribed for Isak Swartz MD on 10/14/18 at 1837. Scribe Documentation Reviewed: Yes Provider Attestation: The documentation as recorded by the Rian cao accurately reflects the service I personally performed and the decisions made by me, Isak Swartz MD Status of Scribe Document: Viewed
[2018-10-14] MEDS ORDERED: FLUoxetine CAP* 20 MG PO ONE (07:59)
[2018-10-14] MEDS ORDERED: Divalproex DR TAB(*) 500 MG PO ONE (07:59)
--- NOTE | 2018-10-14 08:00 | PN ---
ED Flex Patient Progress Note Date of Service: 10/13/18 Subjective: This is a 38 year-old M who is pending admission to [facility] / transfer to another psychiatric facility / discharge to home / or being observed secondary to depression and increased stress. Pt. examined in room 23 at 0757. He is sleeping comfortably. Objective: Vitals: Most recent vital signs documented below. General NAD Laboratory: Current laboratory results documented below. Assessment: Depression Plan: Pending MHE. Morning medication ordered. Vital Signs Temp Pulse Resp BP Pulse Ox 99.9 F 79 18 135/81 97 10/13/18 18:43 10/13/18 18:43 10/13/18 21:20 10/13/18 18:43 10/13/18 18:43 Lab Results - Entire Visit 10/13/18 10/13/18 10/13/18 13:39 13:39 13:35 WBC 6.9 RBC 4.58 Hgb 13.8 L Hct 41 L MCV 89 MCH 30 MCHC 34 RDW 13 Plt Count 241 MPV 7.3 L Neut % (Auto) 67.6 Lymph % (Auto) 22.6 Campbell % (Auto) 8.1 Eos % (Auto) 0.9 Baso % (Auto) 0.8 Absolute Neuts (auto) 4.7 Absolute Lymphs (auto) 1.6 Absolute Monos (auto) 0.6 Absolute Eos (auto) 0.1 Absolute Basos (auto) 0.1 Absolute Nucleated RBC 0 Nucleated RBC % 0 Sodium 138 Potassium 4.2 Chloride 105 Carbon Dioxide 25 Anion Gap 8 BUN 23 Creatinine 0.83 Est GFR ( Amer) 125.5 Est GFR (Non-Af Amer) 103.7 BUN/Creatinine Ratio 27.7 H Glucose 98 Calcium 9.4 Total Bilirubin 0.50 AST 15 ALT 11 Alkaline Phosphatase 49 Total Protein 7.2 Albumin 4.7 Globulin 2.5 Albumin/Globulin Ratio 1.9 TSH 1.11 Urine Color Urine Appearance Urine pH Ur Specific [place] Urine Protein Urine Ketones Urine Blood Urine Nitrate Urine Bilirubin Urine Urobilinogen Ur Leukocyte Esterase Urine WBC (Auto) Urine RBC (Auto) Urine Bacteria Urine Glucose Salicylates < 2.50 Urine Opiates Screen None detected Acetaminophen < 15 Ur Barbiturates Screen None detected Valproic Acid 103.0 H Ur Phencyclidine Scrn None detected Ur Amphetamines Screen None detected U Benzodiazepines Scrn None detected Urine Cocaine Screen None detected U Cannabinoids Screen None detected Serum Alcohol < 10 10/13/18 13:35 WBC RBC Hgb Hct MCV MCH MCHC RDW Plt Count MPV Neut % (Auto) Lymph % (Auto) Campbell % (Auto) Eos % (Auto) Baso % (Auto) Absolute Neuts (auto) Absolute Lymphs (auto) Absolute Monos (auto) Absolute Eos (auto) Absolute Basos (auto) Absolute Nucleated RBC Nucleated RBC % Sodium Potassium Chloride Carbon Dioxide Anion Gap BUN Creatinine Est GFR ( Amer) Est GFR (Non-Af Amer) BUN/Creatinine Ratio Glucose Calcium Total Bilirubin AST ALT Alkaline Phosphatase Total Protein Albumin Globulin Albumin/Globulin Ratio TSH Urine Color Yellow Urine Appearance Cloudy Urine pH 6.0 Ur Specific [place] 1.026 Urine Protein Negative Urine Ketones Trace A Urine Blood 1+ A Urine Nitrate Negative Urine Bilirubin Negative Urine Urobilinogen Negative Ur Leukocyte Esterase Negative Urine WBC (Auto) Trace(0-5/hpf) Urine RBC (Auto) 3+(>10/hpf) A Urine Bacteria Absent Urine Glucose Negative Salicylates Urine Opiates Screen Acetaminophen Ur Barbiturates Screen Valproic Acid Ur Phencyclidine Scrn Ur Amphetamines Screen U Benzodiazepines Scrn Urine Cocaine Screen U Cannabinoids Screen Serum Alcohol
== END 2018-10-14 09:32 | disposition home or self-care (01) ==
LOC: ED 12:46
DX: F31.81 Bipolar II disorder (principal); F39 Unspecified mood [affective] disorder; Z88.0 Allergy status to penicillin; R51 Headache; Z87.891 Personal history of nicotine dependence; Z96.642 Presence of left artificial hip joint; F32.9 Major depressive disorder, single episode, unspecified
CPT/HCPCS: 36415; 80053; 80164; 80307; 80320; 80329; 81003; 81015; 84443; 85025; 87086; 99285; A9270-GY; G0480

== ENCOUNTER 2018-10-14 11:45 | Emergency (ER) | payer MEDICARE, MEDICAID ==
--- NOTE | 2018-10-14 12:03 | ED ---
Psychiatric Complaint - HPI Summary HPI Summary: This patient is a 38 year old M presenting to ED with a chief complaint of HI since about 3 days ago. His mom was dx with brain CA. Because of all the stress , his mood has been up and down and since 3 days ago, he reports he constantly is livid and wants to strangle his sister. He took his medication here this morning and it hasnt done anything to calm him down. He also cant go home to his girlfriend until he stabilizes. He doesnt feel that his sister is safe from him. Since he left the ED earlier today, he has taken marijuana. 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 The patient rates the pain 0/10 in severity. Symptoms aggravated by recent stress concerning his mom. Symptoms alleviated by nothing. Patient denies SI. - History Of Current Complaint Time Seen by Provider: 10/14/18 11:54 Hx Obtained From: Patient Onset/Duration: Sudden Onset, Lasting Days - since 3 days ago, Still Present Timing: Constant Severity Currently: None Character: Angry Aggravating Factor(s): Recent Stress Alleviating Factor(s): Nothing Associated Signs And Symptoms: Positive: Hostile Related History: Positive For: Prior Psychiatric Issues Has Suicidal: Denies: Thoughts Has Homicidal: Reports: Thoughts, With A Plan - Allergies/Home Medications Allergies/Adverse Reactions: Allergies Allergy/AdvReac Type Severity Reaction Status Date / Time amoxicillin Allergy Rash Verified 10/13/18 13:25 cefaclor Allergy Rash Verified 10/13/18 13:25 cyclobenzaprine Allergy See Comment Verified 10/13/18 13:26 [From Flexeril] erythromycin base Allergy Rash Verified 10/13/18 13:25 Benedryl Allergy Severe Dyskinesia Uncoded 07/24/17 14:58 neurontin at high doses Allergy Rash Uncoded 07/24/17 14:58 PMH/Surg Hx/FS Hx/Imm Hx Endocrine/Hematology History: Denies: Hx Diabetes Cardiovascular History: Denies: Hx Hypertension, Hx Pacemaker/ICD Respiratory History: Denies: Hx Asthma Musculoskeletal History: Reports: Hx Back Problems, 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 Left hip replacement 2008 Infectious Disease History: Reports: Hx Hepatitis - Hep. C Denies: History Other Infectious Disease - Family History Known Family History: Positive: Hypertension, Other - MS/parkinsons - Social History Alcohol Use: None Alcohol Amount: h/o abuse Hx Substance Use: Yes Substance Use Type: Reports: None Substance Use Comment - Amount & Last Used: amphetamines, opiods 07/24/17- clean since 06/11/17 Hx Tobacco Use: Yes Smoking Status (MU): Former Smoker Type: Cigarettes Amount Used/How Often: <1/2 ppd Length of Time of Smoking/Using Tobacco: 19 yrs Have You Smoked in the Last Year: Yes Review of Systems Negative: Fever Positive: Other - angry, HI; denies SI All Other Systems Reviewed And Are Negative: Yes Physical Exam - Summary Physical Exam Summary: VITAL SIGNS: Reviewed. GENERAL: Patient is a well-developed and nourished MALE who is lying comfortable in the stretcher. Patient is not in any acute respiratory distress. HEAD AND FACE: No signs of trauma. No ecchymosis, hematomas or skull depressions. No sinus tenderness. EYES: PERRLA, EOMI x 2, No injected conjunctiva, no nystagmus. EARS: Hearing grossly intact. Ear canals and tympanic membranes are within normal limits. MOUTH: Oropharynx within normal limits. NECK: Supple, trachea is midline, no adenopathy, no JVD, no carotid bruit, no c- spine tenderness, neck with full ROM. CHEST: Symmetric, no tenderness at palpation LUNGS: Clear to auscultation bilaterally. No wheezing or crackles. CVS: Regular rate and rhythm, S1 and S2 present, no murmurs or gallops appreciated. ABDOMEN: Soft, non-tender. No signs of distention. No rebound no guarding, and no masses palpated. Bowel sounds are normal. EXTREMITIES: FROM in all major joints, no edema, no cyanosis or clubbing. NEURO: Alert and oriented x 3. No acute neurological deficits. Speech is normal and follows commands. SKIN: Dry and warm PSYCH: Angry, quiet, and denies any suicidal thoughts or plan. No signs of psychosis or pressure speech. No tangential speech. Triage Information Reviewed: Yes Vital Signs On Initial Exam: Initial Vitals Temp Pulse Resp BP Pulse Ox 98.2 F 93 16 132/95 96 10/14/18 11:52 10/14/18 11:52 10/14/18 11:52 10/14/18 11:52 10/14/18 11:52 Vital Signs Reviewed: Yes Course/Dx - Course Course Of Treatment: This patient is a 38-year-old male who presents to the emergency department with a chief complaint of having thoughts of killing her sister. The patient was discharged morning by Dr. Healy after he expressed the same interventions. The patient was medically clear. Dr. Healy from psychiatry came and assessed the patient. After his assessment he reports that the patient doesnt have any psychiatric illness that he can treat. Apparently Dr. Healy knows the patient really well. He thinks that the patient is having malingering therefore after his is extensive assessment in the ED he reports for the patient to be discharged to a assisted. Patient is hemolyticus stable alert oriented 3. Assessment/Plan: Patient is cleared for MHE at 1201. - Differential Dx/Clinical Impression Differential Diagnosis/HQI/PQRI: Positive: Other - Malingering Provider Diagnosis: Malingering - Physician Notifications Discussed Care Of Patient With: Shahid Healy Time Discussed With Above Provider: 15:17 Instructed by Provider To: Other - Dr. Healy evaluated the patient at 1517 and he doesnt think that the patient has any psychiatric issues that he can treat. He is just having malingering, so the patient will be discharged to the assisted and Albin, the psychosocial rehabilitation counselor is working on it. Discharge - Sign-Out/Discharge Documenting (check all that apply): Patient Departure - discharge Patient Received Moderate/Deep Sedation with Procedure: No - Discharge Plan Condition: Stable Disposition: HOME Referrals: [facility] [Outside] - 3 Days Additional Instructions: Per completion of a mental health evaluation, you are cleared for release and do not require inpatient psychiatric hospitalization at this time. Please go to nearest emergency room or call 911 if safety concerns arise or condition worsens. Important Phone Numbers: [facility] ph:[phone] Suicide Prevention and Crisis Services ph:[phone] National Suicide Prevention Lifeline ph:[phone] (9297) [facility] ph:[phone] Alcoholics Anonymous ph:[phone] [facility] ph:[phone] [facility] ph:[phone] Recommendation: Pursue housing at the [facility] @ [address] [address] Contact [facility] on Tuesday to schedule an intake and to pursue treatment - Billing Disposition and Condition Condition: STABLE Disposition: Home - Attestation Statements Document Initiated by Collinibe: Yes Documenting Scribe: Rian Israel Provider For Whom Torri is Documenting (Include Credential): Isak Swartz MD Scribe Attestation: IRian, scribed for Isak Swartz MD on 10/14/18 at 1838. Scribe Documentation Reviewed: Yes Provider Attestation: The documentation as recorded by the Rina cao accurately reflects the service I personally performed and the decisions made by me, Isak Swartz MD Status of Scribe Document: Viewed
--- NOTE | 2018-10-14 15:43 | PN ---
Subjective - Subjective Date of Service: 10/14/18 Service Type: 80689 Hosp care 35 min high complexity Subjective: Evaluated patient in Rm. 5 in the ED. He was asleep when we went to see him. During the evaluation he didn't offer any sign/ symptoms of mental illness rather behaviors indicative of antisocial traits. Blaming others like his sister for his problems and wants to hurt her for her role as his mother's Power of defense attorney. Reportedly his mother is in the hospital due to a brain cancer. He recently moved with his girlfriend and she also doesn't want him back. He didn't exhibit or report any manic, hypomanic or psychotic symptoms. During the assessment he was using obscene language and at times got upset for probing questions regarding his drug use history. After he was discharged from ED this morning he went out, smoked Cannabis and then went to the police station to report that he wanted to hurt his sister and police brought him back to the ED. Basically this is a 38 y/o male with extensive h/o poly-substance use, h/o care home, multiple failed drug rehabs presented to [facility] asking for admission without evidence of mental health problems rather a manipulative behaviors. Objective - Appearance Appearance: Well Developed/Nourished Dysmorphic Features: No Hygiene: Normal Grooming: Fairly Well Kept - Behavior Psychomotor Activities: Normal Exhibits Abnormal Movement: No - Attitude and Relatedness Attitude and Relatedness: Manipulative Eye Contact: Fair - Speech Quality: Unpressured Latencies: Normal Quantity: Appropriate - Mood Patient's Decription of Mood: "Angry" - Affect Observed Affect: Tense Affect Consistent with: Dysphoria - Thought Process Patient's Thought Process: Coherent, Goal Directed Thought Content: No Passive Wish, No Suicidal Planning, No Homicidal Ideation - want to hurt his sister, No Paranoid Ideation - Sensorium Experiencing Hallucinations: No, Sensorium is Clear Type of Hallucinations: Visual: No, Auditory: No, Command: No - Level of Consciousness Level of Consciousness: Alert Orientation: Yes Intact, Yes Orientated to Time, Yes Orientated to Place, Yes Orientated to Person - Impulse Control Impulse Control: Tenuous - Insight and Judgement Insight and Judgement: Poor Assessment - Assessment Clinical Impression: 38 y/o male with extensive polysubstance use presents to ED for admission in the context of nowhere to go and doesn't want to go to the [facility]. He is manipulative. Plan - Plan Treatment Plan: Name: RIVER GANNON Birthdate: 1980 [id number] - Discharge Plan Discharge Plan: Drug/Alcohol Rehab - Patient will be sent to the [facility].
[2018-10-14] MEDS ORDERED: Acetaminophen TAB* 325 MG PO ONE (15:56)
[2018-10-14 16:24] VITALS: BP 0/0
== END 2018-10-14 16:18 | disposition home or self-care (01) ==
LOC: ED 11:45
DX: F19.90 Other psychoactive substance use, unspecified, uncomplicated (principal); Z76.5 Malingerer [conscious simulation]; Z87.891 Personal history of nicotine dependence; Z88.0 Allergy status to penicillin
CPT/HCPCS: 99284; A9270-GY

== ENCOUNTER 2018-11-02 00:07 | Emergency (ER) | payer MEDICARE, MEDICAID ==
--- NOTE | 2018-11-02 00:29 | ED ---
Altered Mental Status - HPI Summary HPI Summary: A 38 y/o M presents to ED with c/o worsening anxiety onset today. Pt's mother is dying from small cell CA upstairs in [facility]. He feels his lynn is coming on. There are about 6 family members all in the hospital room. He cannot stop talking. He hasn't slept in two days nor drunk any caffeine. He takes Depakote, but went to the [facility] pharmacy and they only had the long release. He did take his Abilify this afternoon. Denies SI HI. - History Of Current Complaint Chief Complaint: EDGeneral Stated Complaint: BAD ANXIETY, NEED MEDS PER PT Time Seen by Provider: 11/02/18 00:24 Hx Obtained From: Patient Onset/Duration: Still Present Timing: Constant, Lasting Hours Severity Initially: Moderate Severity Currently: Severe Aggravating Factor(s): Other - recent stress - Allergies/Home Medications Allergies/Adverse Reactions: Allergies Allergy/AdvReac Type Severity Reaction Status Date / Time amoxicillin Allergy Rash Verified 11/02/18 00:17 cefaclor Allergy Rash Verified 11/02/18 00:17 cyclobenzaprine Allergy See Comment Verified 11/02/18 00:17 [From Flexeril] erythromycin base Allergy Rash Verified 11/02/18 00:17 Benedryl Allergy Severe Dyskinesia Uncoded 11/02/18 00:17 PMH/Surg Hx/FS Hx/Imm Hx Previously Healthy: No Endocrine/Hematology History: Denies: Hx Diabetes Cardiovascular History: Denies: Hx Hypertension, Hx Pacemaker/ICD Respiratory History: Denies: Hx Asthma Musculoskeletal History: Reports: Hx Back Problems, 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 Left hip replacement 2008 Infectious Disease History: No Infectious Disease History: Reports: Hx Hepatitis - Hep. C Denies: History Other Infectious Disease, Traveled Outside the [place] in Last 30 Days - Family History Known Family History: Positive: Hypertension, Other - MS/Parkinsons, ETOH, depression - Social History Occupation: Disabled Lives: Dormitory/Roommates Alcohol Use: None Alcohol Amount: h/o abuse Hx Substance Use: Yes Substance Use Type: Reports: None Substance Use Comment - Amount & Last Used: amphetamines, opiods 07/24/17- clean since 06/11/17 Hx Tobacco Use: Yes Smoking Status (MU): Former Smoker Type: Cigarettes Amount Used/How Often: <1/2 ppd Length of Time of Smoking/Using Tobacco: 19 yrs Have You Smoked in the Last Year: Yes Review of Systems Negative: Fever Psychological: Other - neg: SI, HI Positive: Anxious All Other Systems Reviewed And Are Negative: Yes Physical Exam - Summary Physical Exam Summary: Appearance: Well-appearing, Well-nourished, lying in bed comfortable Skin: Warm, dry, no obvious rash Eyes: sclera anicteric, no conjunctival pallor ENT: mucous membranes moist Neck: deferred Respiratory: No signs of respiratory distress Cardiovascular: Appears well perfused, pulses are nml Abdomen: deferred Musculoskeletal: Moving all 4 extremities without obvious discomfort Neurological: Awake and alert, mentation is normal, speech is fluent and appropriate Psychiatric: affect is normal, does not appear anxious or depressed Triage Information Reviewed: Yes Vital Signs On Initial Exam: Initial Vitals Temp Pulse Resp BP Pulse Ox 99.0 F 89 16 138/93 97 11/02/18 00:10 11/02/18 00:10 11/02/18 00:10 11/02/18 00:10 11/02/18 00:10 Vital Signs Reviewed: Yes Diagnostics - Vital Signs Vital Signs Temp Pulse Resp BP Pulse Ox 11/02/18 00:10 99.0 F 89 16 138/93 97 - Laboratory Lab Statement: Any lab studies that have been ordered have been reviewed, and results considered in the medical decision making process. Altered Mental Statu Course/Dx - Course Course Of Treatment: Pt is a 38 y/o M presenting with worsening anxiety onset today. Pt's mother is dying from small cell CA upstairs in [facility]. He feels his lynn is coming on. He hasn't slept in two days nor drunk any caffeine. He takes Depakote, but went to the [facility] pharmacy and they only had the long release. He did take his Abilify this afternoon. Denies SI, HI. Pt given Ativan in ED. Will D/C home. - Diagnoses Provider Diagnoses: Anxiety Discharge - Sign-Out/Discharge Documenting (check all that apply): Patient Departure - D/C Patient Received Moderate/Deep Sedation with Procedure: No - Discharge Plan Condition: Stable Disposition: HOME Patient Education Materials: Anxiety (ED) Referrals: No Primary Care Phys,NOPCP [Primary Care Provider] - Additional Instructions: Followup with your regular mental health provider. I'm sorry about your mother, I hope she passes away peacefully. - Billing Disposition and Condition Condition: STABLE Disposition: Home - Attestation Statements Document Initiated by Torri: Yes Documenting Scribe: Satya Dickens Provider For Whom Torri is Documenting (Include Credential): Dr. Pool King MD Scribe Attestation: I, shivam Winged for Dr. Pool King MD on 11/02/18 at 0554. Scribe Documentation Reviewed: Yes Provider Attestation: The documentation as recorded by the Satya cao accurately reflects the service I personally performed and the decisions made by me, Dr. Pool King MD Status of Scribe Document: Viewed
[2018-11-02] MEDS ORDERED: LORazepam TAB(*) 1 MG PO ONE ×2 (00:30→01:55)
[2018-11-02 04:14] VITALS: BP 138/65
== END 2018-11-02 03:00 | disposition home or self-care (01) ==
LOC: ED 00:07
DX: F41.9 Anxiety disorder, unspecified (principal); F31.9 Bipolar disorder, unspecified; B19.20 Unspecified viral hepatitis C without hepatic coma; Z87.891 Personal history of nicotine dependence
CPT/HCPCS: 99282; A9270-GY

== ENCOUNTER → 2018-11-02 18:14 | Emergency (ER) | payer MEDICARE, MEDICAID ==
[~2018-11-02 18:14] MED LIST: Ibuprofen TAB* 600 MG PO ONE; LORazepam TAB(*) 1 MG PO ONE
--- NOTE | 2018-11-02 19:33 | ED ---
Complex/Multi-Sys Presentation - HPI Summary HPI Summary: Patient complains of anxiety and body aches. Patient states his mom is an ICU in [facility] from small cell carcinoma, patient states he has been sleeping on the floor in her room. Patient has history of anxiety. Denies fever, cough, sore throat, CP, SOB, N/V/V abdominal pain, change in urine, change in BM. Patient currently taking Depakote and Abilify. - History Of Current Complaint Chief Complaint: EDPrescriptionNeeded Time Seen by Provider: 11/02/18 18:44 Hx Obtained From: Patient Onset/Duration: Gradual Onset Timing: Constant Severity Currently: Moderate Severity Initially: Moderate Associated Signs And Symptoms: Positive: Agitation - Allergies/Home Medications Allergies/Adverse Reactions: Allergies Allergy/AdvReac Type Severity Reaction Status Date / Time amoxicillin Allergy Rash Verified 11/02/18 00:17 cefaclor Allergy Rash Verified 11/02/18 00:17 cyclobenzaprine Allergy See Comment Verified 11/02/18 00:17 [From Flexeril] erythromycin base Allergy Rash Verified 11/02/18 00:17 Benedryl Allergy Severe Dyskinesia Uncoded 11/02/18 00:17 PMH/Surg Hx/FS Hx/Imm Hx Endocrine/Hematology History: Denies: Hx Diabetes Cardiovascular History: Denies: Hx Hypertension, Hx Pacemaker/ICD Respiratory History: Denies: Hx Asthma Musculoskeletal History: Reports: Hx Back Problems, 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 Left hip replacement 2008 Infectious Disease History: Yes Infectious Disease History: Reports: Hx Hepatitis - Hep. C Denies: History Other Infectious Disease, Traveled Outside the [place] in Last 30 Days - Family History Known Family History: Positive: Hypertension, Other - MS/Parkinsons, ETOH, depression - Social History Alcohol Use: None Alcohol Amount: h/o abuse Hx Substance Use: Yes Substance Use Type: Reports: None Substance Use Comment - Amount & Last Used: amphetamines, opiods 07/24/17- clean since 06/11/17 Hx Tobacco Use: Yes Smoking Status (MU): Former Smoker Type: Cigarettes Amount Used/How Often: <1/2 ppd Length of Time of Smoking/Using Tobacco: 19 yrs Have You Smoked in the Last Year: Yes Review of Systems Constitutional: Negative Eyes: Negative ENT: Negative Cardiovascular: Negative Respiratory: Negative Gastrointestinal: Negative Genitourinary: Negative Positive: Myalgia Skin: Negative Neurological: Negative Positive: Anxious All Other Systems Reviewed And Are Negative: Yes Physical Exam Triage Information Reviewed: Yes Vital Signs On Initial Exam: Initial Vitals Temp Pulse Resp BP Pulse Ox 98.7 F 104 20 123/90 98 11/02/18 18:29 11/02/18 18:29 11/02/18 18:29 11/02/18 18:29 11/02/18 18:29 Vital Signs Reviewed: Yes Appearance: Positive: Well-Appearing Skin: Positive: Warm Head/Face: Positive: Normal Head/Face Inspection Eyes: Positive: Normal Neck: Positive: Supple Respiratory/Lung Sounds: Positive: Clear to Auscultation Cardiovascular: Positive: Normal Abdomen Description: Positive: Nontender Musculoskeletal: Positive: Normal Neurological: Positive: Normal Psychiatric: Positive: Normal AVPU Assessment: Alert - [place] Coma Scale Best Eye Response: 4 - Spontaneous Best Motor Response: 6 - Obeys Commands Best Verbal Response: 5 - Oriented Coma Scale Total: 15 Diagnostics - Vital Signs Vital Signs Temp Pulse Resp BP Pulse Ox 11/02/18 19:27 14 11/02/18 18:29 98.7 F 104 20 123/90 98 - Laboratory Lab Statement: Any lab studies that have been ordered have been reviewed, and results considered in the medical decision making process. Complex Multi-Symp Course/Dx Course Of Treatment: Patient complains of anxiety and body aches. Patient states his mom is an ICU in [facility] from small cell carcinoma, patient states he has been sleeping on the floor in her room. Patient has history of anxiety. Denies fever, cough, sore throat, CP, SOB, N/V/V abdominal pain, change in urine, change in BM. Patient currently taking Depakote and Abilify. Physical exam unremarkable. Vital signs within normal limits. Patient feels much better after ibuprofen and Ativan 1 December by mouth. Advised patient to follow up with PCP for anxiety management. Patient states he has apt to set up primary care next week. - Diagnoses Provider Diagnoses: Anxiety, Generalized body aches Discharge - Sign-Out/Discharge Documenting (check all that apply): Patient Departure Patient Received Moderate/Deep Sedation with Procedure: No - Discharge Plan Condition: Stable Disposition: HOME Patient Education Materials: Anxiety (ED) Referrals: No Primary Care Phys,NOPCP [Primary Care Provider] - Additional Instructions: Follow-up with your primary care provider for management of anxiety. Return to the ED for any new or worsening symptoms. - Billing Disposition and Condition Condition: STABLE Disposition: Home
[2018-11-02 19:54] VITALS: BP 108/62
== END | disposition home or self-care (01) ==
LOC: ED 18:14
DX: F41.9 Anxiety disorder, unspecified (principal); F31.9 Bipolar disorder, unspecified; B19.20 Unspecified viral hepatitis C without hepatic coma; M79.10 Myalgia, unspecified site; R56.9 Unspecified convulsions; Z96.642 Presence of left artificial hip joint; Z88.1 Allergy status to other antibiotic agents; Z88.0 Allergy status to penicillin; Z88.8 Allergy status to other drugs, medicaments and biological substances; Z87.891 Personal history of nicotine dependence
CPT/HCPCS: 99282; A9270-GY